=== PATIENT | male | born 1995 | race African-American/Black ===

== ENCOUNTER 2023-02-12 03:08 | Emergency (ER) | payer MEDICAID ==
[~2023-02-12] VITALS: Ht 170.2 cm; Wt 77.8 kg
[2023-02-12 03:15] VITALS: BP 133/78
== END 2023-02-12 03:46 | disposition left against medical advice (07) ==
LOC: ER 03:33
DX: Z53.21 Procedure and treatment not carried out due to patient leaving prior to being seen by health care provider (principal)

== ENCOUNTER 2025-04-09 16:18 | Emergency (ER) | payer MEDICAID ==
[~2025-04-09] VITALS: Ht 175.3 cm; Wt 75.0 kg
[2025-04-09 16:24] VITALS: RESP 18; O2SAT 100
[2025-04-09] MEDS ORDERED: IBUP-2029 MT (19:22)
[2025-04-09] MEDS: KETOROLAC 30MG/ML VIAL IM ONE (19:33)
[2025-04-09 20:14] VITALS: BP 140/80; PULSE 73; TEMP 36.8; O2SAT 100
== END 2025-04-09 20:10 | disposition home or self-care (01) ==
LOC: ER 16:18
DX: M54.12 Radiculopathy, cervical region (principal); Z79.899 Other long term (current) drug therapy
CPT/HCPCS: 99284; 72040; 73030; 96372; J1885